=== PATIENT | female | born 1960 | race Caucasian/White ===

== ENCOUNTER → 2017-01-23 | Outpatient (CLI) | payer OTHER ==
[~2017-01-23] MED LIST: ARTHRITIS PAIN650 MG PO; FISH OIL1000 MG PO; FLAXSEED OIL1000 M1 PO; OSCAL + D500 MG PO; PRILOSEC20 MG PO
== END | disposition disaster alternative care site (69) ==
LOC: GRAD 08:45
DX: S29.9XXA Unspecified injury of thorax, initial encounter (principal); R07.81 Pleurodynia